=== PATIENT | female | born 2000 | race African-American/Black ===

== ENCOUNTER 2023-06-01 11:38 | Emergency (ER) | payer OTHER ==
[2023-06-01] MEDS ORDERED: Ketorolac Tromethamine 30 MG (1 mL) VIAL ONE (12:35)
== END 2023-06-01 12:49 | disposition home or self-care (01) ==
LOC: CSHERS 11:38
DX: M79.605 Pain in left leg (principal); F17.290 Nicotine dependence, other tobacco product, uncomplicated
CPT/HCPCS: 96372; J1885